=== PATIENT | male | born 1995 | race American Indian/Alaskan Native ===

== ENCOUNTER 2020-01-23 20:02 | Emergency (ER) | payer SELFPAY ==
--- NOTE | 2020-01-23 20:34 | Event Note ---
ED Screening Note Date of service: 01/23/20 Time: 20:29 ED Screening Note: 24 y.o. M. with sore throat for 2 days. Woke up with symptoms and worsening. PMH of asthma + dysphagia Denies recent travel or contact with COVID 19. This initial assessment/diagnostic orders/clinical plan/treatment(s) is/are subject to change based on patients health status, clinical progression and re- assessment by fellow clinical providers in the ED. Further treatment and workup at subsequent clinical providers discretion. Patient/guardian urged not to elope from the ED as their condition may be serious if not clinically assessed and managed. Initial orders include: rapid strep
[2020-01-23] MEDS ORDERED: IBUPROFEN 600 MG TAB PO ONE (21:41)
[2020-01-23] MEDS ORDERED: dexAMETHasone 20 MG/5 ML VIAL IM ONE (21:41)
--- NOTE | 2020-01-23 21:46 | Emergency Department Report ---
ED ENT HPI - General Chief complaint: Sore Throat Stated complaint: THROAT PAIN Time Seen by Provider: 01/23/20 20:28 Source: patient Mode of arrival: Ambulatory Limitations: No Limitations - History of Present Illness Initial comments: Patient is a 24-year-old male presents emergency room with complaints of a sore throat that began 2 days ago. He has associated pain with swallowing, fatigue, subjective fever. He is able to tolerate p.o. intake and his secretions but states it is uncomfortable when he does drink and swallow. He denies any nausea, vomiting, diarrhea, cough, shortness of breath. He denies any sick contacts. He denies any travel. He denies any past medical history. He denies any allergies to medications. He is a non-smoker. He is a nondrinker. - Related Data Previous Rx's Medication Instructions Recorded Last Taken Type Ibuprofen [Motrin] 800 mg PO TID PRN #30 tablet 09/16/13 08/06/15 Rx traMADoL [Ultram 50 MG tab] 50 mg PO Q6HR PRN #15 tablet 08/08/15 Unknown Rx Penicillin Vk [Veetids TAB] 500 mg PO BID 10 Days #40 tablet 01/23/20 Unknown Rx Allergies Allergy/AdvReac Type Severity Reaction Status Date / Time No Known Allergies Allergy Verified 08/08/15 03:12 ED Dental HPI - General Chief complaint: Sore Throat Stated complaint: THROAT PAIN Time Seen by Provider: 01/23/20 20:28 Source: patient Mode of arrival: Ambulatory Limitations: No Limitations - Related Data Previous Rx's Medication Instructions Recorded Last Taken Type Ibuprofen [Motrin] 800 mg PO TID PRN #30 tablet 09/16/13 08/06/15 Rx traMADoL [Ultram 50 MG tab] 50 mg PO Q6HR PRN #15 tablet 08/08/15 Unknown Rx Penicillin Vk [Veetids TAB] 500 mg PO BID 10 Days #40 tablet 01/23/20 Unknown Rx Allergies Allergy/AdvReac Type Severity Reaction Status Date / Time No Known Allergies Allergy Verified 08/08/15 03:12 ED Review of Systems ROS: Stated complaint: THROAT PAIN Other details as noted in HPI Comment: All other systems reviewed and negative ED Past Medical Hx - Past Medical History Previous Medical History?: Yes Hx Asthma: Yes - Surgical History Past Surgical History?: Yes Additional Surgical History: right femur - Social History Smoking Status: Never Smoker Substance Use Type: None - Medications Home Medications: Home Medications Medication Instructions Recorded Confirmed Last Taken Type Ibuprofen [Motrin] 800 mg PO TID PRN #30 tablet 09/16/13 08/08/15 08/06/15 Rx traMADoL [Ultram 50 MG tab] 50 mg PO Q6HR PRN #15 tablet 08/08/15 Unknown Rx Penicillin Vk [Veetids TAB] 500 mg PO BID 10 Days #40 tablet 01/23/20 Unknown Rx ED Physical Exam - General Limitations: No Limitations General appearance: alert, in no apparent distress - Head Head exam: Present: atraumatic, normocephalic - Eye Eye exam: Present: normal appearance - ENT ENT exam: Present: mucous membranes dry (mildly), TM's normal bilaterally, normal external ear exam, other (bilateral tonsillar hypertrophy with exudates, uvula is midline, no peritonsillar abscess/mass, no uvula edema, no uvular deviation, no deviation of the tongue) - Respiratory Respiratory exam: Present: normal lung sounds bilaterally. Absent: respiratory distress, wheezes, rales, rhonchi, stridor, chest wall tenderness, accessory muscle use, decreased breath sounds, prolonged expiratory - Cardiovascular Cardiovascular Exam: Present: regular rate, normal rhythm, normal heart sounds. Absent: systolic murmur, diastolic murmur, rubs, gallop - Neurological Exam Neurological exam: Present: alert, oriented X3 - Psychiatric Psychiatric exam: Present: normal affect, normal mood - Skin Skin exam: Present: warm, dry, intact ED Course Vital Signs 01/23/20 01/23/20 01/23/20 20:14 21:55 22:40 Temperature 99.9 F H 99.3 F Pulse Rate 113 H 92 H Respiratory 18 18 18 Rate Blood Pressure 114/69 Blood Pressure 135/69 [Left] O2 Sat by Pulse 97 100 Oximetry 01/23/20 22:55 Temperature Pulse Rate Respiratory 18 Rate Blood Pressure Blood Pressure [Left] O2 Sat by Pulse Oximetry ED Medical Decision Making - Lab Data Lab Results 01/23/20 Range/Units Unknown Group A Strep Rapid Positive A (Negative) Vital Signs 01/23/20 01/23/20 01/23/20 20:14 21:55 22:40 Temperature 99.9 F H 99.3 F Pulse Rate 113 H 92 H Respiratory 18 18 18 Rate Blood Pressure 114/69 Blood Pressure 135/69 [Left] O2 Sat by Pulse 97 100 Oximetry 01/23/20 22:55 Temperature Pulse Rate Respiratory 18 Rate Blood Pressure Blood Pressure [Left] O2 Sat by Pulse Oximetry - Medical Decision Making Patient is a 24-year-old male presents emergency room with complaints of a sore throat that began 2 days ago. He has associated pain with swallowing, fatigue, subjective fever. He is able to tolerate p.o. intake and his secretions but states it is uncomfortable when he does drink and swallow. He denies any nausea, vomiting, diarrhea, cough, shortness of breath. He denies any sick contacts. He denies any travel. He denies any past medical history. He denies any allergies to medications. He is a non-smoker. He is a nondrinker. initial vitals with elevated HR and temp which improved upon ibuprofen administration. on exam: bilateral tonsillar hypertrophy with exudates, uvula is midline, no peritonsillar abscess/mass, no uvula edema, no uvular deviation, no deviation of the tongue. Rapid strep is positive. Discussed the importance of oral rehydration with patient. Patient given dexamethasone IM and ibuprofen. Patient given prescription for penicillin VK. advised pt to please take medication as prescribed to completion. Increase your fluid intake over the next several days. May alternate Tylenol and ibuprofen every 6-8 hours as needed for fever or body aches. Gargle with salt water 3 times a day. Throw away her toothbrush. Do not drink after others or allow others to drink after you. Please stay at home until you are fever free for at least 24 hours. Follow-up with your primary care doctor. Return to the emergency room immediately for any new or worsening symptoms. Critical care attestation.: If time is entered above; I have spent that time in minutes in the direct care of this critically ill patient, excluding procedure time. ED Disposition Clinical Impression: Strep throat Disposition: DC-01 TO HOME OR SELFCARE Is pt being admited?: No Does the pt Need Aspirin: No Condition: Stable Instructions: Strep Throat (ED) Additional Instructions: Please take medication as prescribed to completion. Increase your fluid intake over the next several days. May alternate Tylenol and ibuprofen every 6-8 hours as needed for fever or body aches. Gargle with salt water 3 times a day. Throw away her toothbrush. Do not drink after others or allow others to drink after you. Please stay at home until you are fever free for at least 24 hours. Follow-up with your primary care doctor. Return to the emergency room immediately for any new or worsening symptoms. Prescriptions: Penicillin Vk [Veetids TAB] 500 mg PO BID 10 Days #40 tablet Referrals: ALBERT PALOMO MD [Staff Physician] - 3-5 Days [facility] [Outside] - 3-5 Days Forms: Work/School Release Form(ED) Time of Disposition: 21:44 Print Language: CHINESE
[2020-01-23 23:01] VITALS: BP 135/69
== END 2020-01-23 22:40 | disposition home or self-care (01) ==
LOC: ED 20:02
DX: J02.0 Streptococcal pharyngitis (principal); J45.909 Unspecified asthma, uncomplicated; Z79.899 Other long term (current) drug therapy; Z98.890 Other specified postprocedural states
CPT/HCPCS: 87430; 96372; 99283; J1100

== ENCOUNTER 2020-12-22 15:57 | Emergency (ER) | payer SELFPAY ==
[2020-12-22 16:50] VITALS: BP 135/67
--- NOTE | 2020-12-22 17:41 | Cat Scan Report ---
CT head/brain wo con INDICATION / CLINICAL INFORMATION: 25 years Male; headache. TECHNIQUE: Routine CT head without contrast. All CT scans at this location are performed using CT dos e reduction for ALARA by means of automated exposure control. COMPARISON: None. FINDINGS: BRAIN / INTRACRANIAL CONTENTS: The brain appears to demonstrate appropriate attenuation. The ventricu lar system is within normal limits in size and configuration. There is no CT evidence of acute intrac ranial hemorrhage or significant mass effect. ORBITS: No significant abnormality of visualized orbits. SINUSES / MASTOIDS: There is minimal mucosal thickening within the visualized right maxillary sinus. CRANIOCERVICAL JUNCTION: No significant abnormality. ADDITIONAL FINDINGS: None. IMPRESSION: 1. There is no CT evidence of acute intracranial process. Signer Name: Sebastián Ely MD Signed: 12/22/2020 5:37 PM Workstation Name: [id number]
--- NOTE | 2020-12-22 18:17 | Emergency Department Report ---
ED General Adult HPI - General Chief complaint: Medical Clearance Stated complaint: ATTITUDE ISSUES Time Seen by Provider: 12/22/20 16:50 Source: patient Mode of arrival: Ambulatory Limitations: No Limitations - History of Present Illness Initial comments: 25-year-old -[place] male presents emerged department complaining of a several week history of gradually worsening headaches which are associated with mood swings and increased anger which he feels is going to be a problem as he is unable to to determine or when they are going to take place. He reports no fever, chills, sweats reports no head trauma reports no no history of any mental health issues and psychiatric issues. He reports no illicit drug utilization to compound any of these experiences -: Gradual Location: head Radiation: non-radiation Quality: aching, dull Consistency: constant Improves with: none Worsens with: none Associated Symptoms: denies: confusion, chest pain, diaphoresis, loss of appetite, nausea/vomiting - Related Data Previous Rx's Medication Instructions Recorded Last Taken Type Ibuprofen [Motrin] 800 mg PO TID PRN #30 tablet 09/16/13 08/06/15 Rx traMADoL [Ultram 50 MG tab] 50 mg PO Q6HR PRN #15 tablet 08/08/15 Unknown Rx Penicillin Vk [Veetids TAB] 500 mg PO BID 10 Days #40 tablet 01/23/20 Unknown Rx ALPRAZolam [Xanax TAB] 0.25 mg PO BID PRN #10 tab 12/22/20 Unknown Rx Allergies Allergy/AdvReac Type Severity Reaction Status Date / Time No Known Allergies Allergy Verified 08/08/15 03:12 ED Review of Systems ROS: Stated complaint: ATTITUDE ISSUES Other details as noted in HPI Comment: All other systems reviewed and negative ED Past Medical Hx - Past Medical History Hx Asthma: Yes - Surgical History Additional Surgical History: right femur - Social History Smoking Status: Never Smoker - Medications Home Medications: Home Medications Medication Instructions Recorded Confirmed Last Taken Type Ibuprofen [Motrin] 800 mg PO TID PRN #30 tablet 09/16/13 08/08/15 08/06/15 Rx traMADoL [Ultram 50 MG tab] 50 mg PO Q6HR PRN #15 tablet 08/08/15 Unknown Rx Penicillin Vk [Veetids TAB] 500 mg PO BID 10 Days #40 tablet 01/23/20 Unknown Rx ALPRAZolam [Xanax TAB] 0.25 mg PO BID PRN #10 tab 12/22/20 Unknown Rx ED Physical Exam - General Limitations: No Limitations General appearance: alert, in no apparent distress - Head Head exam: Present: atraumatic, normocephalic - Eye Eye exam: Present: normal appearance, PERRL, EOMI Pupils: Present: normal accommodation - ENT ENT exam: Present: normal exam, normal orophraynx, mucous membranes moist, TM's normal bilaterally - Neck Neck exam: Present: normal inspection, full ROM - Respiratory Respiratory exam: Present: normal lung sounds bilaterally. Absent: respiratory distress, wheezes, rales - Cardiovascular Cardiovascular Exam: Present: regular rate, normal rhythm. Absent: systolic murmur, diastolic murmur, rubs, gallop - GI/Abdominal GI/Abdominal exam: Present: soft, normal bowel sounds. Absent: distended, tenderness, hyperactive bowel sounds, hypoactive bowel sounds - Rectal Rectal exam: Present: deferred - Extremities Exam Extremities exam: Present: normal inspection, normal capillary refill - Back Exam Back exam: Present: normal inspection. Absent: CVA tenderness (R), CVA tenderness (L), paraspinal tenderness, vertebral tenderness - Neurological Exam Neurological exam: Present: alert, oriented X3, CN II-XII intact - Psychiatric Psychiatric exam: Present: normal affect, normal mood - Skin Skin exam: Present: warm, dry, intact, normal color. Absent: rash ED Course Vital Signs 12/22/20 16:47 Temperature 98.2 F Pulse Rate 77 Respiratory 18 Rate Blood Pressure 135/67 O2 Sat by Pulse 98 Oximetry ED Medical Decision Making - Radiology Data Radiology results: report reviewed Referring Physician:JESSICA GOMEZPatient Name:MANUEL REZAPatient ID:[id number] of :[id number]:MaleAccession:[id number] Date:[id number] Status:Finalized Findings [facility] [address] [place] [address] Cat Scan Report Signed Patient: MANUEL REZA JR MR#: [id number] : 1995 Acct:[id number] Age/Sex: 25 / M ADM Date: 12/22/20 Loc: ED Attending Dr: Ordering Physician: JACQUELINE FORRESTER Date of Service: 12/22/20 Procedure(s): CT head/brain wo con Accession Number(s): [id number] cc: JACQUELINE FORRESTER CT head/brain wo con INDICATION / CLINICAL INFORMATION: 25 years Male; headache. TECHNIQUE: Routine CT head without contrast. All CT scans at this location are performed using CT dose reduction for ALARA by means of automated exposure control. COMPARISON: None. FINDINGS: BRAIN / INTRACRANIAL CONTENTS: The brain appears to demonstrate appropriate attenuation. The ventricular system is within normal limits in size and configuration. There is no CT evidence of ac grayling intracranial hemorrhage or significant mass effect. ORBITS: No significant abnormality of visualized orbits. SINUSES / MASTOIDS: There is minimal mucosal thickening within the visualized right maxillary sinus. CRANIOCERVICAL JUNCTION: No significant abnormality. ADDITIONAL FINDINGS: None. IMPRESSION: 1. There is no CT evidence of acute intracranial process. Signer Name: Sebastián Ely MD Signed: 12/22/2020 5:37 PM Workstation Name: [id number] Transcribed By: MR Dictated By: Sebastián Ely MD Electronically Authenticated By: Sebastián Ely MD Signed Date/Time: 12/22/201736 DD/ 32 TD/TT: - Medical Decision Making 25-year-old male with mood swings headaches of unknown etiology CT scan was normal advised and to evaluate for organic causes. Is likely however there may be some supratentorial component which may need further investigation by psychiatry which he states he would like to speak to as well. In the meantime we will give him a temporary medication to help ease his moods to prevent them from escalating to the point that he is a danger to others. There has been no incidences what that type of behavior is wanting to be avoided Critical care attestation.: If time is entered above; I have spent that time in minutes in the direct care of this critically ill patient, excluding procedure time. ED Disposition Clinical Impression: Mood swings, Cephalgia Disposition: DC-01 TO HOME OR SELFCARE Is pt being admited?: No Does the pt Need Aspirin: No Condition: Stable Instructions: Managing Anger, Adult, General Headache Without Cause, Intermittent Explosive Disorder, Form - Headache Record Prescriptions: ALPRAZolam [Xanax TAB] 0.25 mg PO BID PRN #10 tab PRN Reason: Anxiety Referrals: ALBERT PALOMO MD [Staff Physician] - 3-5 Days [facility] [[facility]] - 3-5 Days
== END 2020-12-22 18:47 | disposition home or self-care (01) ==
LOC: ED 15:57
DX: R45.86 Emotional lability (principal); R51.9 Headache, unspecified; J45.909 Unspecified asthma, uncomplicated; Z79.899 Other long term (current) drug therapy; Z98.890 Other specified postprocedural states
CPT/HCPCS: 70450; 99283

== ENCOUNTER 2021-01-04 07:52 | Emergency (ER) | payer SELFPAY ==
[2021-01-04 07:55] VITALS: BP 147/98
--- NOTE | 2021-01-04 08:03 | Emergency Department Report ---
ED ENT HPI - General Chief complaint: Dental/Oral Stated complaint: LEFT SIDE OF FACE ABCESS Time Seen by Provider: 01/04/21 07:58 Source: patient Mode of arrival: Ambulatory Limitations: No Limitations - History of Present Illness Initial comments: The patient was evaluated in the emergency department for symptoms described in the history of present illness. He/she was evaluated in the context of the global COVID-19 pandemic, which necessitated consideration that the patient might be at risk for infection with the virus that causes COVID-19. Inst itutional protocols and algorithms that pertain to the evaluation of patients at risk for COVID-19 are in a state of rapid change based on information released by regulatory bodies including the CDC and federal and state organizations. These policies and algorithms were followed during the patient's care in the emergency department. Please note that these policies, procedures and recommendations changed on a rapid basis. 25-year-old -[place] male presents to the emergency room with acute a history of left lower jaw swelling and tooth ache. Patient reports he is aware that he has a tooth with a large hole. Patient states is been taking Goody powders and BC powders as well as Orajel. Patient states that he got some temporary filling for cavity in place that. Patient states that the pain is a 10 out of 10. Patient does not have a primary care provider or dentist. Patient denies any fever chills denies any trauma to the jaw. MD complaint: tooth pain Onset/Timin -: days(s) Location: tooth # (18) Severity: severe Severity scale (0 -10): 10 Quality: stabbing, sharp Consistency: constant Improves with: none Worsens with: eating Context- Dental: history of dental caries - Related Data Previous Rx's Medication Instructions Recorded Last Taken Type Ibuprofen [Motrin] 800 mg PO TID PRN #30 tablet 09/16/13 08/06/15 Rx traMADoL [Ultram 50 MG tab] 50 mg PO Q6HR PRN #15 tablet 08/08/15 Unknown Rx Penicillin Vk [Veetids TAB] 500 mg PO BID 10 Days #40 tablet 01/23/20 Unknown Rx ALPRAZolam [Xanax TAB] 0.25 mg PO BID PRN #10 tab 12/22/20 Unknown Rx Clindamycin [Clindamycin CAP] 300 mg PO Q8H 10 Days #30 cap 01/04/21 Unknown Rx Ibuprofen [Motrin 600 MG tab] 600 mg PO Q8H PRN #30 tablet 01/04/21 Unknown Rx Allergies Allergy/AdvReac Type Severity Reaction Status Date / Time No Known Allergies Allergy Verified 08/08/15 03:12 ED Dental HPI - General Chief complaint: Dental/Oral Stated complaint: LEFT SIDE OF FACE ABCESS Time Seen by Provider: 01/04/21 07:58 Source: patient Mode of arrival: Ambulatory Limitations: No Limitations - Related Data Previous Rx's Medication Instructions Recorded Last Taken Type Ibuprofen [Motrin] 800 mg PO TID PRN #30 tablet 09/16/13 08/06/15 Rx traMADoL [Ultram 50 MG tab] 50 mg PO Q6HR PRN #15 tablet 08/08/15 Unknown Rx Penicillin Vk [Veetids TAB] 500 mg PO BID 10 Days #40 tablet 01/23/20 Unknown Rx ALPRAZolam [Xanax TAB] 0.25 mg PO BID PRN #10 tab 12/22/20 Unknown Rx Clindamycin [Clindamycin CAP] 300 mg PO Q8H 10 Days #30 cap 01/04/21 Unknown Rx Ibuprofen [Motrin 600 MG tab] 600 mg PO Q8H PRN #30 tablet 01/04/21 Unknown Rx Allergies Allergy/AdvReac Type Severity Reaction Status Date / Time No Known Allergies Allergy Verified 08/08/15 03:12 ED Review of Systems ROS: Stated complaint: LEFT SIDE OF FACE ABCESS Other details as noted in HPI ED Past Medical Hx - Past Medical History Previous Medical History?: Yes Hx Asthma: Yes - Surgical History Past Surgical History?: Yes Additional Surgical History: right femur - Social History Smoking Status: Never Smoker Substance Use Type: None - Medications Home Medications: Home Medications Medication Instructions Recorded Confirmed Last Taken Type Ibuprofen [Motrin] 800 mg PO TID PRN #30 tablet 09/16/13 08/08/15 08/06/15 Rx traMADoL [Ultram 50 MG tab] 50 mg PO Q6HR PRN #15 tablet 08/08/15 Unknown Rx Penicillin Vk [Veetids TAB] 500 mg PO BID 10 Days #40 tablet 01/23/20 Unknown Rx ALPRAZolam [Xanax TAB] 0.25 mg PO BID PRN #10 tab 12/22/20 Unknown Rx Clindamycin [Clindamycin CAP] 300 mg PO Q8H 10 Days #30 cap 01/04/21 Unknown Rx Ibuprofen [Motrin 600 MG tab] 600 mg PO Q8H PRN #30 tablet 01/04/21 Unknown Rx ED Physical Exam - General Limitations: No Limitations ED Course Vital Signs 01/04/21 07:54 Temperature 97.6 F Pulse Rate 78 Respiratory 20 Rate Blood Pressure 147/98 O2 Sat by Pulse 99 Oximetry ED Medical Decision Making - Medical Decision Making 25-year-old -[place] male presents to the emergency room with acute a history of left lower jaw swelling and tooth ache. Patient reports he is aware that he has a tooth with a large hole. Patient states is been taking Goody powders and BC powders as well as Orajel. Patient states that he got some tempo rary filling for cavity in place that. Patient states that the pain is a 10 out of 10. Patient does not have a primary care provider or dentist. Patient denies any fever chills denies any trauma to the jaw. Patient appears to have a dental abscess will place him on clindamycin ibuprofen referral to dentist. Critical care attestation.: If time is entered above; I have spent that time in minutes in the direct care of this critically ill patient, excluding procedure time. ED Disposition Clinical Impression: Abscess, dental Disposition: DC-01 TO HOME OR SELFCARE Is pt being admited?: No Does the pt Need Aspirin: No Condition: Stable Instructions: Dental Abscess, [id number] Additional Instructions: Complete antibiotics, pain medication as needed. Follow-up with a dentist I have listed several below for your convenience. Prescriptions: Clindamycin [Clindamycin CAP] 300 mg PO Q8H 10 Days #30 cap Ibuprofen [Motrin 600 MG tab] 600 mg PO Q8H PRN #30 tablet PRN Reason: Pain Referrals: PRIMARY CARE, [Primary Care Provider] - 3-5 Days [facility] [Outside] - 3-5 Days [facility] [Outside] - 3-5 Days Forms: Work/School Release Form(ED)
[2021-01-04] MEDS ORDERED: IBUPROFEN 600 MG TAB PO ONE (08:19)
== END 2021-01-04 08:30 | disposition home or self-care (01) ==
LOC: ED 07:52
DX: K04.7 Periapical abscess without sinus (principal); J45.909 Unspecified asthma, uncomplicated; Z98.890 Other specified postprocedural states; Z79.899 Other long term (current) drug therapy
CPT/HCPCS: 99281

== ENCOUNTER 2021-08-09 22:31 | Emergency (ER) | payer SELFPAY ==
[2021-08-09 22:50] VITALS: BP 112/68
[2021-08-09] MEDS ORDERED: IBUPROFEN 600 MG TAB PO ONE (23:25)
[2021-08-09] MEDS ORDERED: LIDOCAINE-MPF (1%) 10 MG/1 ML VIAL 5 ML INFILTRATI ONE (23:25)
--- NOTE | 2021-08-09 23:46 | XRay Report ---
Right hand 3 views INDICATION: Right hand pain following injury IMPRESSION: Prominent soft tissue edema overlying the MCPs of the right hand. No underlying fracture or subluxation is identified. Signer Name: Louis Amor MD Signed: 08/09/2021 11:42 PM Workstation Name: [id number]
--- NOTE | 2021-08-09 23:58 | Emergency Department Report ---
ED Upper Extremity Inj HPI - General Chief Complaint: Wound/Laceration Stated Complaint: LEFT ARM INJURY AND SORE FINGER Source: patient Mode of arrival: Ambulatory Limitations: No Limitations - History of Present Illness Initial Comments: Patient is a 26-year-old -Filipino male with no past medical history presents to the ED with complaint of acute onset persistent painful bleeding left forearm laceration and right hand pain and swelling after he slipped off a skateboard and landed on his left forearm causing laceration about 8 hours ago. Patient states that the pain and the bleeding have not been well controlled. Patient states that he is up-to-date with his tetanus vaccinations. Patient denies numbness and tingling or weakness of upper extremities bilaterally, nausea, vomiting, loss of consciousness, head or neck injuries, back pain, hip pain, chest pain or shortness of breath or change in vision. MD Complaint: Injury to:: left, forearm (Left forearm bleeding laceration), hand (Right hand swelling and pain) -: Sudden, hour(s) (8) Other Extremity Injury: Hand: Right (Swelling and pain), Forearm: Left (Bleeding laceration) Other Injuries: none Handedness: right Place: home Severity scale (0 -10): 5 Improves With: none Worsens With: movement of extremity Context: fall (Tripped and fell down landing on the concrete), injury, skateboard accident Associated Symptoms: denies other symptoms. denies: weakness, numbness, neck pain, suspects foreign body, nausea/vomiting, heard/felt popping sensat, other - Related Data Previous Rx's Medication Instructions Recorded Last Taken Type Ibuprofen [Motrin] 800 mg PO TID PRN #30 tablet 09/16/13 08/06/15 Rx traMADoL [Ultram 50 MG tab] 50 mg PO Q6HR PRN #15 tablet 08/08/15 Unknown Rx Penicillin Vk [Veetids TAB] 500 mg PO BID 10 Days #40 tablet 01/23/20 Unknown Rx ALPRAZolam [Xanax TAB] 0.25 mg PO BID PRN #10 tab 12/22/20 Unknown Rx Clindamycin [Clindamycin CAP] 300 mg PO Q8H 10 Days #30 cap 01/04/21 Unknown Rx Ibuprofen [Motrin 600 MG tab] 600 mg PO Q8H PRN #30 tablet 01/04/21 Unknown Rx Ibuprofen [Motrin] 800 mg PO Q8HR PRN #24 tablet 08/10/21 Unknown Rx cephALEXin [Keflex] 500 mg PO Q8HR #30 cap 08/10/21 Unknown Rx Allergies Allergy/AdvReac Type Severity Reaction Status Date / Time No Known Allergies Allergy Verified 08/08/15 03:12 ED Review of Systems ROS: Stated complaint: LEFT ARM INJURY AND SORE FINGER Other details as noted in HPI Constitutional: denies: chills, fever Eyes: denies: eye pain, eye discharge, vision change ENT: denies: ear pain, throat pain Respiratory: denies: cough, shortness of breath, wheezing Cardiovascular: denies: chest pain, palpitations Endocrine: no symptoms reported Gastrointestinal: denies: abdominal pain, nausea, diarrhea Genitourinary: denies: urgency, dysuria Musculoskeletal: arthralgia (Left forearm bleeding laceration wound), other (Right hand pain and swelling). denies: back pain, joint swelling Skin: denies: rash, lesions Neurological: denies: headache, weakness, paresthesias Psychiatric: denies: anxiety, depression Hematological/Lymphatic: denies: easy bleeding, easy bruising ED Past Medical Hx - Past Medical History Previous Medical History?: Yes Hx Asthma: Yes - Surgical History Past Surgical History?: Yes Additional Surgical History: right femur - Social History Smoking Status: Never Smoker Substance Use Type: None - Medications Home Medications: Home Medications Medication Instructions Recorded Confirmed Last Taken Type Ibuprofen [Motrin] 800 mg PO TID PRN #30 tablet 09/16/13 08/08/15 08/06/15 Rx traMADoL [Ultram 50 MG tab] 50 mg PO Q6HR PRN #15 tablet 08/08/15 Unknown Rx Penicillin Vk [Veetids TAB] 500 mg PO BID 10 Days #40 tablet 01/23/20 Unknown Rx ALPRAZolam [Xanax TAB] 0.25 mg PO BID PRN #10 tab 12/22/20 Unknown Rx Clindamycin [Clindamycin CAP] 300 mg PO Q8H 10 Days #30 cap 01/04/21 Unknown Rx Ibuprofen [Motrin 600 MG tab] 600 mg PO Q8H PRN #30 tablet 01/04/21 Unknown Rx Ibuprofen [Motrin] 800 mg PO Q8HR PRN #24 tablet 08/10/21 Unknown Rx cephALEXin [Keflex] 500 mg PO Q8HR #30 cap 08/10/21 Unknown Rx ED Physical Exam - General Limitations: No Limitations General appearance: alert, in no apparent distress - Head Head exam: Present: atraumatic, normocephalic, normal inspection - Eye Eye exam: Present: normal appearance, PERRL, EOMI Pupils: Present: normal accommodation - ENT ENT exam: Present: normal exam, normal orophraynx, mucous membranes moist, TM's normal bilaterally, normal external ear exam - Neck Neck exam: Present: normal inspection, full ROM - Respiratory Respiratory exam: Present: normal lung sounds bilaterally. Absent: respiratory distress, wheezes, rhonchi, chest wall tenderness, accessory muscle use, decreased breath sounds - Cardiovascular Cardiovascular Exam: Present: regular rate, normal rhythm, normal heart sounds. Absent: systolic murmur, diastolic murmur, rubs, gallop - GI/Abdominal GI/Abdominal exam: Present: soft, normal bowel sounds. Absent: tenderness, guarding, hyperactive bowel sounds, hypoactive bowel sounds, organomegaly, bruit, pulsatile mass - Extremities Exam Extremities exam: Present: normal inspection, full ROM, tenderness (Palpable left forearm bleeding 3 cm laceration wound), normal capillary refill - Back Exam Back exam: Present: normal inspection, full ROM. Absent: tenderness, CVA tenderness (R), CVA tenderness (L), muscle spasm, paraspinal tenderness, vertebral tenderness - Neurological Exam Neurological exam: Present: alert, oriented X3, CN II-XII intact, normal gait, reflexes normal - Psychiatric Psychiatric exam: Present: normal affect, normal mood - Skin Skin exam: Present: warm, dry, intact, normal color, other (Bleeding left forearm 3 cm laceration). Absent: rash ED Course Vital Signs 08/09/21 22:49 Temperature 98.7 F Pulse Rate 79 Respiratory 18 Rate Blood Pressure 112/68 O2 Sat by Pulse 95 Oximetry - Laceration /Wound Repair Left Lower Arm Wound Location: upper extremity (Left forearm bleeding laceration) Wound Length (cm): 3 Wound's Depth, Shape: superficial, linear Wound Explored: contaminated Irrigated w/ Saline (ccs): 300 Betadine Prep?: Yes Anesthesia: 1% Lidocaine Volume Anesthetic (ccs): 5 Wound Debrided: extensive Wound Repaired With: sutures Suture Size/Type: 4:0, 3:0, proline Number of Sutures: 8 Layer Closure?: No Sterile Dressing Applied?: Yes Progress: The wound was cleaned sensitively with normal saline and Betadine solution. The wound was then infiltrated with 5 cc of 1% lidocaine solution. When anesthesia was fully achieved, the wound was sutured per protocol with 3-0 Prolene sutures. Patient tolerated procedure well. The wound was then dressed appropriately and the patient was discharged home on pain medications and prophylactic antibiotics. ED Medical Decision Making - Radiology Data Radiology results: report reviewed, image reviewed [facility] [address] [place] [address] XRay Report Signed Patient: MANUEL REZA JR MR#: [id number] : 1995 Acct:[id number] Age/Sex: 26 / M ADM Date: 08/09/21 Loc: ED Attending Dr: Ordering Physician: JACQUELINE TAVARES Date of Service: 08/09/21 Procedure(s): XR hand 3+V RT Accession Number(s): [id number] cc: JACQUELINE TAVARES Fluoro Time In Minutes: Right hand 3 views INDICATION: Right hand pain following injury IMPRESSION: Prominent soft tissue edema overlying the MCPs of the right hand. No underlying fracture or subluxation is identified. Signer Name: Louis Amor MD Signed: 08/09/2021 11:42 PM Workstation Name: [id number] Transcribed By: JARRETT Dictated By: Louis Amor MD Electronically Authenticated By: Louis Amor MD Signed Date/Time: 08/09/212341 DD/ 40 TD/TT: - Medical Decision Making This is a 26-year-old -Filipino male with no past medical history presents to the ED with complaint of acute onset persistent painful bleeding left forearm laceration and right hand pain and swelling after he slipped off a skateboard and landed on his left forearm causing laceration about 8 hours ago. Patient states that the pain and the bleeding have not been well controlled. Patient states that he is up-to-date with his tetanus vaccinations. In the ED, patient is alert and oriented x3 and is not in any distress. Patient was treated for pain in the ED. Right hand x-ray showed no acute fractures or subluxation but soft tissue swelling on the MCP area. The left forearm laceration wound was cleaned extensively with normal saline and Betadine solutions. The wound was then approximated and sutured per protocol. Patient tolerated the procedure well. The wound was thereafter dressed appropriately and the patient will discharge home on pain medication and prophylactic antibiotics. Patient was advised to follow-up with his primary care physician in 7 to 10 days for reevaluation or return to the ED immediately if symptoms get worse. Patient was otherwise advised to return to the ED or to his primary care physician in 12 to 14 days for suture removal. - Differential Diagnosis laceration; puncture wound; hand contusion; Critical care attestation.: If time is entered above; I have spent that time in minutes in the direct care of this critically ill patient, excluding procedure time. ED Disposition Clinical Impression: Contusion of right hand Qualifiers: Encounter type: initial encounter Qualified Code(s): S60.221A - Contusion of right hand, initial encounter Laceration of left forearm Qualifiers: Encounter type: initial encounter Qualified Code(s): S51.812A - Laceration without foreign body of left forearm, initial encounter Disposition: HOME / SELF CARE / HOMELESS Is pt being admited?: No Does the pt Need Aspirin: No Condition: Stable Instructions: Contusion, [id number], Laceration Care, Adult, [id number] Additional Instructions: Take medication with food, drink plenty of fluids and follow-up with your primary care physician in 7 to 10 days for reevaluation. Return to the ED immediately if symptoms get worse. Return to the ED in 12 to 14 days for suture removal. Prescriptions: cephALEXin [Keflex] 500 mg PO Q8HR #30 cap Ibuprofen [Motrin] 800 mg PO Q8HR PRN #24 tablet PRN Reason: Pain , Severe (7-10) Referrals: [facility] [Provider Group] - 7-10 days Time of Disposition: 00:03 Print Language: CHINESE
== END 2021-08-10 01:06 | disposition home or self-care (01) ==
LOC: ED 22:31
DX: S51.812A Laceration without foreign body of left forearm, initial encounter (principal); S60.221A Contusion of right hand, initial encounter; J45.909 Unspecified asthma, uncomplicated; W01.0XXA Fall on same level from slipping, tripping and stumbling without subsequent striking against object, initial encounter; Y93.51 Activity, roller skating (inline) and skateboarding; Y92.89 Other specified places as the place of occurrence of the external cause; Y99.8 Other external cause status
CPT/HCPCS: 99283